=== PATIENT | female | born 1965 | race Caucasian/White ===

== ENCOUNTER 2021-07-30 07:59 | Day surgery (SDC) | payer MEDICAID ==
[~2021-07-30 07:59] MED LIST: Midazolam 1 MG/ML 2 ML SDV ONE; Propofol 200 MG/20 ML SDV ONE; fentaNYL 100 MCG/2 ML SDV ONE
[2021-07-30] MEDS ORDERED: Sodium Chloride 0.9% 1,000 ML IV SCH (08:15)
== END 2021-07-30 11:26 | disposition home or self-care (01) ==
LOC: JP.SDS 07:59
PROVIDERS: ATTEND Surgery
DX: Z12.11 Encounter for screening for malignant neoplasm of colon (principal); D12.4 Benign neoplasm of descending colon; D12.5 Benign neoplasm of sigmoid colon; F17.210 Nicotine dependence, cigarettes, uncomplicated; Z80.0 Family history of malignant neoplasm of digestive organs
CPT/HCPCS: J2250; J2704; J3010; J7030

== ENCOUNTER 2023-01-27 11:20 | Emergency (ER) | payer MEDICAID ==
[2023-01-27] MEDS ORDERED: Meclizine 25 MG Tab PO ONE (13:33)
[2023-01-27 13:44] LABS: BASOPHILS ABSOLUTE AUTO 0.05 K/uL (0.00-0.10); BASOPHILS PERCENT AUTO 0.6 % (0.1-1.3); EOSINOPHILS ABSOLUTE AUTO 0.11 K/uL (0.00-0.40); EOSINOPHILS PERCENT AUTO 1.3 % (0.0-5.4); HEMATOCRIT 44.4 % (34.3-46.0); HEMOGLOBIN 15.5 g/dL (11.2-15.5); IMMATURE GRAN ABSOLUTE AUTO 0.03 K/uL (0.00-0.23); IMMATURE GRAN PERCENT AUTO 0.3 % (0.0-0.7); LYMPHOCYTES ABSOLUTE AUTO 3.07 K/uL (0.8-3.3); LYMPHOCYTES PERCENT AUTO 35.7 % (11.4-47.7); MEAN CORPUSCULAR HEMOGLOBIN 32.4 pg (31.6-35.5); MEAN CORPUSCULAR HGB CONC 34.9 g/dL (31.6-35.5); MEAN CORPUSCULAR VOLUME 92.7 fL (81.4-99.0); MONOCYTES ABSOLUTE AUTO 0.68 K/uL (0.20-0.90); MONOCYTES PERCENT AUTO 7.9 % (3.3-12.6); NEUTROPHILS ABSOLUTE AUTO 4.66 K/uL (1.0-7.6); NEUTROPHILS PERCENT AUTO 54.2 % (40.0-78.1); PLATELET COUNT,PLT 216 K/uL (130-375); RED BLOOD CELL COUNT 4.79 M/uL (3.77-5.24); WHITE BLOOD CELL COUNT,WBC 8.6 K/uL (3.2-11.0)
[2023-01-27 14:00] LABS: CALCIUM 8.9 mg/dL (8.5-10.1); CREATININE 0.6 mg/dL (0.6-1.0); EST CRCL DRUG DOSING (CG) 98.01 mL/min; POTASSIUM,K 3.8 mmol/L (3.6-5.2)
[2023-01-27 14:01] LABS: ANION GAP 11.8 mmol/L (5.0-14.0)
== END 2023-01-27 14:56 | disposition home or self-care (01) ==
LOC: JP.ED 11:20
DX: H81.10 Benign paroxysmal vertigo, unspecified ear (principal); F17.210 Nicotine dependence, cigarettes, uncomplicated; Z79.899 Other long term (current) drug therapy
CPT/HCPCS: 36415; 80048; 85025; 99284; A9270

== ENCOUNTER 2025-01-27 08:04 | Day surgery (SDC) | payer MEDICAID ==
[2025-01-27] MEDS: Lactated Ringers 1,000 ML IV SCH (08:38)
[2025-01-27] MEDS ORDERED: fentaNYL 100 MCG/2 ML SDV ONE (08:58)
[2025-01-27] MEDS ORDERED: Midazolam 1 MG/ML 2 ML SDV ONE (08:58)
[2025-01-27] MEDS ORDERED: Propofol 200 MG/20 ML SDV ONE ×2 (08:58→09:32)
== END 2025-01-27 11:40 | disposition home or self-care (01) ==
LOC: JP.SDS 08:04
PROVIDERS: ATTEND Surgery
DX: Z12.11 Encounter for screening for malignant neoplasm of colon (principal); K63.5 Polyp of colon; K62.1 Rectal polyp; K63.89 Other specified diseases of intestine; F17.210 Nicotine dependence, cigarettes, uncomplicated
CPT/HCPCS: 00811; 45380; J2250; J2704; J3010; J7120; 88305